=== PATIENT | female | born 1990 | race Caucasian/White ===

== ENCOUNTER → 2021-09-04 12:56 | Outpatient (CLI) | payer OTHER, SELFPAY ==
--- NOTE | ~2021-09-04 | XR_ITS ---
XR lumbar spine min 4V DATE: 09/04/2021 13:16 INDICATION: Lumbar radiculopathy TECHNIQUE: AP, lateral, bilateral oblique views, coned lateral lumbosacral view COMPARISON: None FINDINGS: There is minimal degenerative spurring in the lower thoracic spine. Normal alignment lumbar spine. There is mild degenerative disc disease at L3-4 and moderately promine nt degenerative disc disease at L4-5. No spondylolysis or spondylolisthesis. No fracture or bone destruction. Included lower thoracic and l umbar pedicles are intact. The sacroiliac joints are normal. IMPRESSION: Degenerative changes of lower thoracic and lumbar spine Reviewed, dictated and finalized at location A.
== END ==
PROVIDERS: PCP Nurse Practitioner; Visit Provider Nurse Practitioner
DX: M54.16 Radiculopathy, lumbar region (principal)
CPT/HCPCS: 72110

== ENCOUNTER → 2021-09-12 11:06 | Outpatient (CLI) | payer OTHER, SELFPAY ==
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
== END ==
PROVIDERS: PCP Internal Medicine; Visit Provider Clinical Nurse Specialist
DX: R20.2 Paresthesia of skin (principal); M51.36 Other intervertebral disc degeneration, lumbar region
CPT/HCPCS: 72148

== ENCOUNTER 2021-11-09 13:02 | Outpatient (CLI) | payer OTHER, SELFPAY ==
[2021-11-09 20:33] LABS: Basophils Absolute Auto 0.1 K/mm3 (0.0-0.1); Basophils Percent Auto 0.6 % (0.2-1.2); Eosinophils Absolute Auto 0.2 K/mm3 (0-0.3); Eosinophils Percent Auto 1.9 % (0-4.4); Hematocrit 42.7 % (37.0-47.0); Immature Granulocyte Absolute 0.04 K/mm3 (0.00-0.031); Immature Granulocyte Percent A 0.3 % (0-0.5); Lymphocytes Absolute Auto 2.14 K/mm3 (0.9-3.2); Lymphocytes Percent Auto 18.6 % (18.3-44.2); Mean Corpuscular HGB Conc 31.4 g/dl (32-36); Mean Corpuscular Hemoglobin 27.1 pg (26-34); Mean Corpuscular Volume 86.4 fl (80-100); Mean Platelet Volume 10.7 fl (7.4-10.4); Monocytes Absolute Auto 1.1 K/mm3 (0.1-0.6); Monocytes Percent Auto 9.9 % (2.6-8.5); Neutrophils Absolute Auto 7.9 K/mm3 (1.3-6.7); Neutrophils Percent Auto 68.7 % (45.5-73.1); Platelet Count Result 360 k/mm3 (150-375); Red Blood Count 4.94 M/mm3 (4.2-5.4); Red Cell Distribution Width 13.5 % (11.5-14.5); White Blood Count 11.5 K/mm3 (4.5-10.0)
[2021-11-09 20:36] LABS: Appearance Urine Turbid (Clear); Bilirubin Urine 1+ (Negative); Color Urine Brown (Yellow); Glucose Urine UA Negative (Negative); Ketones Urine Negative (Negative); Leukocyte Esterase Ur Negative LEU/UL (NEGATIVE); Nitrate Urine Negative (Negative); Protein Urine 1+ mg/dL (Negative); Specific Grav Ur >= 1.030 (1.001-1.035); Urobilinogen Urine 0.2 mg/dL (<2.0)
[2021-11-09 21:00] LABS: Alanine Aminotransferase 36 U/L (6-35); Albumin Level 4.5 g/dL (3.5-5.1); Alkaline Phosphatase 86 U/L (38-126); Anion Gap 14 mmol/L (8-16); Aspartate Amino Transferase 57 U/L (14-36); Bilirubin,Total 0.6 mg/dL (0.2-1.3); Blood Urea Nitrogen 9 mg/dL (7-17); Calcium 8.6 mg/dL (8.4-10.2); Carbon Dioxide 27 mmol/L (22-30); Chloride 99 mmol/L (98-107); Estimated Glomerular Filt Rate > 60; Glucose 92 mg/dL (65-110); Potassium 3.6 mmol/L (3.4-5.0); Sodium 140 mmol/L (137-145)
[2021-11-09 21:04] LABS: Hemoglobin 13.4 g/dL (12.0-15.0)
[2021-11-09 21:12] LABS: Bacteria Urine Trace /hpf; Calcium Oxalate Crystals Urine Present /hpf; Mucus Urine Heavy /lpf; RBC Urine 0-2 /hpf (0-2); Squamous Epithelial Cell Urine Moderate /hpf (Few); WBC Urine 16-20 /hpf (0-3)
[2021-11-09 21:22] LABS: HIV 1/2 Ab P24 Ag Result Negative (Negative)
[2021-11-09 21:57] LABS: Add Urine Microscopic? YES; Blood Urine Trace-Intact (Negative)
[2021-11-10 10:39] LABS: Rapid Plasma Reagin Non-Reactive (NonReactive)
== END 2021-11-09 13:03 | disposition home or self-care (01) ==
LOC: ANHGOSHLAB 13:05
PROVIDERS: PCP Internal Medicine; Visit Provider Family Medicine
DX: Z11.3 Encounter for screening for infections with a predominantly sexual mode of transmission (principal); R10.2 Pelvic and perineal pain; R30.0 Dysuria
CPT/HCPCS: 36415; 80053; 81001; 85025; 86592; 86703; 87086; 87088; 87491; 87591; 87661; 87808; G0432

== ENCOUNTER 2022-02-11 09:30 | Outpatient (CLI) | payer OTHER, SELFPAY ==
--- NOTE | ~2022-02-11 | XR_ITS ---
Left foot Technique: AP, oblique, and lateral views were obtained. Clinical History: Pain Findings: No acute fracture or dislocation is seen. Osseous alignment is anatomic. Joint spaces are p reserved without erosive or degenerative change. Soft tissues are unremarkable. Impression: Unremarkable left foot radiographs. Reviewed, dictated and finalized at location . ICE OFFICER Impression: Unremarkable left foot radiographs.
--- NOTE | ~2022-02-11 | XR_ITS ---
Left ankle Technique: AP, oblique, and lateral views were obtained. Clinical History: Pain and swelling Findings: No acute fracture or dislocation is seen. Osseous alignment is anatomic. Ankle mortise and other visualized joint spaces are preserved. Diffuse soft tissue swelling about the ankle noted, aracelis cially medially. Impression: No fracture or dislocation. Soft tissue swelling, as detailed above. Reviewed, dictated and finalized at location . TICE SPECIALIST Impression: No fracture or dislocation. Soft tissue swelling, as detailed above.
== END 2022-02-11 09:31 ==
PROVIDERS: PCP Family Medicine; Visit Provider Family Medicine
DX: M25.572 Pain in left ankle and joints of left foot (principal); R60.9 Edema, unspecified
CPT/HCPCS: 73610; 73630

== ENCOUNTER 2022-02-11 11:02 | Outpatient (CLI) | payer OTHER, SELFPAY ==
--- NOTE | ~2022-02-11 | MR_ITS ---
MRI of the left ankle Clinical history: Trauma Technique: Coronal proton-density and proton-density fat-sat images, axial proton-density and proton- density fat-sat images, and sagittal proton-density and proton-density fat-sat images were acquired. Findings: Syndesmotic ligaments are intact. Anterior and posterior talofibular ligaments, and calcane ofibular ligament are intact. Deltoid ligament is intact. Spring ligament appears intact. Medial flexor tendons, peroneal tendons, anterior extensor tendons, and Achilles tendon are intact. There is a transverse, nondisplaced fracture of the lateral malleolus, at the level of the ankle mort ise. No other fracture identified. Remaining bone marrow signals are unremarkable. Alignment of the a nkle mortise and other joint spaces is unremarkable. No significant joint effusion. There is extensive hematoma formation in the subcutaneous soft tissues along the medial aspect of the ankle, measuring up to approximately 5.7 x 1.4 x 5.0 cm in extent. There is associated diffuse soft tissue edema about the ankle otherwise. Impression: Transverse, nondisplaced fracture of the lateral malleolus, as detailed above. Large hematoma formation in the medial subcutaneous soft tissues, as detailed above. Reviewed, dictated and finalized at location . RYMAN Impression: Transverse, nondisplaced fracture of the lateral malleolus, as detailed above. Large hematoma formation in the medial subcutaneous soft tissues, as detailed a idania.
== END 2022-02-11 11:03 | disposition home or self-care (01) ==
PROVIDERS: PCP Family Medicine; Visit Provider Family Medicine
DX: S82.65XA Nondisplaced fracture of lateral malleolus of left fibula, initial encounter for closed fracture (principal); T14.90XA Injury, unspecified, initial encounter; M25.472 Effusion, left ankle
CPT/HCPCS: 73721

== ENCOUNTER 2022-02-17 11:20 | Outpatient (RCR) | payer OTHER, SELFPAY ==
--- NOTE | 2021-09-21 16:49 | PCPTNOTE ---
Patient did not show up for scheduled initial evaluation this date.
== END 2022-02-17 11:25 | disposition home or self-care (01) ==
LOC: ANHGOSHPT 11:20
PROVIDERS: PCP Family Medicine; Visit Provider Nurse Practitioner
DX: M54.16 Radiculopathy, lumbar region (principal)
CPT/HCPCS: 99199

== ENCOUNTER 2022-08-12 11:38 | Outpatient (CLI) | payer OTHER, SELFPAY ==
[2022-08-12 19:30] LABS: Alanine Aminotransferase 400 U/L (6-35); Albumin Level 4.2 g/dL (3.5-5.1); Alkaline Phosphatase 167 U/L (38-126); Amylase 62 U/L (30-110); Anion Gap 6 mmol/L (8-16); Aspartate Amino Transferase 351 U/L (14-36); Basophils Absolute Auto 0.1 K/mm3 (0.0-0.1); Basophils Percent Auto 0.6 % (0.2-1.2); Bilirubin,Total 0.7 mg/dL (0.2-1.3); Blood Urea Nitrogen 13 mg/dL (7-17); Calcium 8.4 mg/dL (8.4-10.2); Carbon Dioxide 30 mmol/L (22-30); Chloride 101 mmol/L (98-107); Eosinophils Absolute Auto 0.2 K/mm3 (0-0.3); Eosinophils Percent Auto 1.8 % (0-4.4); Estimated Glomerular Filt Rate > 60; Glucose 81 mg/dL (65-110); Hemoglobin 11.9 g/dL (12.0-15.0); Immature Granulocyte Absolute 0.07 K/mm3 (0.00-0.031); Immature Granulocyte Percent A 0.6 % (0-0.5); Lipase 66 U/L (23-300); Lymphocytes Absolute Auto 2.28 K/mm3 (0.9-3.2); Lymphocytes Percent Auto 20.2 % (18.3-44.2); Mean Corpuscular HGB Conc 32.2 g/dl (32-36); Mean Corpuscular Hemoglobin 27.4 pg (26-34); Mean Corpuscular Volume 85.1 fl (80-100); Mean Platelet Volume 10.3 fl (7.4-10.4); Monocytes Absolute Auto 0.8 K/mm3 (0.1-0.6); Monocytes Percent Auto 7.3 % (2.6-8.5); Neutrophils Absolute Auto 7.9 K/mm3 (1.3-6.7); Neutrophils Percent Auto 69.5 % (45.5-73.1); Platelet Count Result 279 k/mm3 (150-375); Potassium 3.9 mmol/L (3.4-5.0); Red Blood Count 4.35 M/mm3 (4.2-5.4); Red Cell Distribution Width 13.3 % (11.5-14.5); Sodium 137 mmol/L (137-145); White Blood Count 11.3 K/mm3 (4.5-10.0)
[2022-08-12 19:37] LABS: Pregnancy On Board Control Positive; Urine Pregnancy Test Negative
[2022-08-12 19:48] LABS: Appearance Urine Turbid (Clear); Bacteria Urine 1+ /hpf; Bilirubin Urine 1+ (Negative); Blood Urine Negative (Negative); Calcium Oxalate Crystals Urine Present /hpf; Color Urine Dark Yellow (Yellow); Glucose Urine UA Negative (Negative); Ketones Urine Trace mg/dL (Negative); Leukocyte Esterase Ur Trace LEU/UL (NEGATIVE); Need Manual Microscopic Reviewed; Nitrate Urine Negative (Negative); Non Pathogenic Casts 0-2; Protein Urine Trace mg/dL (Negative); Specific Grav Ur 1.033 (1.001-1.035); Squamous Epithelial Cell Urine Moderate /hpf (Few); pH Urine 5.5 (5.0-9.0)
[2022-08-12 19:49] LABS: Add Urine Microscopic? YES
[2022-08-19 18:01] LABS: Chenodeoxycholic Acid 2.4 umol/L (< OR = 3.9); Cholic Acid 1.8 umol/L (< OR = 2.8); Deoxycholic Acid 0.8 umol/L (< OR = 2.3); Total Bile Acids 4.9 umol/L (< OR = 8.3)
== END 2022-08-12 11:39 | disposition home or self-care (01) ==
LOC: ANHGOSHLAB 11:40
PROVIDERS: Visit Provider Family Medicine
DX: R10.9 Unspecified abdominal pain (principal)
CPT/HCPCS: 36415; 80053; 81001; 81025; 82150; 82542; 83690; 85025

== ENCOUNTER → 2022-08-12 16:08 | Outpatient (CLI) | payer OTHER, SELFPAY ==
--- NOTE | ~2022-08-12 | US_ITS ---
US abdomen complete EXAMINATION: US Abdomen Complete INDICATION: Abdomen pain PROCEDURE: Realtime High Resolution abdomen ultrasound. COMPARISON: No prior studies for comparison FINDINGS: There are gallstones. Common bile duct measures 5 mm. Liver echotexture is increased, consistent with fatty infiltration.. Pancreas within normal limits. Pancreatic tail is obscured by bowel gas. Spleen is unremarkeable. Renal echotexture is within norm al limits bilaterally without hydronephrosis, contour deforming mass or renal stone. Right kidney fei sures 11.9 cm. Left kidney measures 12.4 cm. Visualized aspects of the aorta and IVC are within normal limits. Portal vein is patent. No sonograph ic Palomino's sign indicated by the technologist. IMPRESSION: 1: Cholelithiasis. 2: Hepatic steatosis. Reviewed, dictated and finalized at location L.
== END ==
PROVIDERS: PCP Family Medicine; Visit Provider Family Medicine
DX: R10.9 Unspecified abdominal pain (principal); K80.20 Calculus of gallbladder without cholecystitis without obstruction; K76.0 Fatty (change of) liver, not elsewhere classified
CPT/HCPCS: 76700

== ENCOUNTER 2022-08-13 12:33 | Outpatient (CLI) | payer OTHER, SELFPAY ==
[2022-08-13 18:32] LABS: Alanine Aminotransferase 256 U/L (6-35); Albumin Level 4.2 g/dL (3.5-5.1); Alkaline Phosphatase 136 U/L (38-126); Anion Gap 5 mmol/L (8-16); Aspartate Amino Transferase 112 U/L (14-36); Bilirubin,Total 0.4 mg/dL (0.2-1.3); Blood Urea Nitrogen 10 mg/dL (7-17); Calcium 8.6 mg/dL (8.4-10.2); Carbon Dioxide 28 mmol/L (22-30); Chloride 104 mmol/L (98-107); Estimated Glomerular Filt Rate > 60; Glucose 101 mg/dL (65-110); Potassium 4.1 mmol/L (3.4-5.0); Sodium 137 mmol/L (137-145)
[2022-08-13 18:38] LABS: Basophils Absolute Auto 0.1 K/mm3 (0.0-0.1); Basophils Percent Auto 0.7 % (0.2-1.2); Eosinophils Absolute Auto 0.2 K/mm3 (0-0.3); Eosinophils Percent Auto 2.2 % (0-4.4); Hematocrit 38.5 % (37.0-47.0); Hemoglobin 12.2 g/dL (12.0-15.0); Immature Granulocyte Absolute 0.09 K/mm3 (0.00-0.031); Immature Granulocyte Percent A 0.8 % (0-0.5); Lymphocytes Absolute Auto 2.29 K/mm3 (0.9-3.2); Lymphocytes Percent Auto 21.4 % (18.3-44.2); Mean Corpuscular HGB Conc 31.7 g/dl (32-36); Mean Corpuscular Hemoglobin 27.1 pg (26-34); Mean Corpuscular Volume 85.6 fl (80-100); Mean Platelet Volume 10.1 fl (7.4-10.4); Monocytes Absolute Auto 0.9 K/mm3 (0.1-0.6); Monocytes Percent Auto 8.5 % (2.6-8.5); Neutrophils Absolute Auto 7.1 K/mm3 (1.3-6.7); Neutrophils Percent Auto 66.4 % (45.5-73.1); Platelet Count Result 298 k/mm3 (150-375); Red Cell Distribution Width 13.4 % (11.5-14.5); White Blood Count 10.7 K/mm3 (4.5-10.0)
[2022-08-13 18:56] LABS: Free T4 Free Thyroxine 0.86 ng/mL (0.78-2.19)
[2022-08-13 19:06] LABS: Hepatitis B Surface Antigen Negative (Negative)
[2022-08-13 19:12] LABS: HAV RESULT Negative (Negative); Hepatitis B Core IgM Result Negative (Negative)
[2022-08-13 19:23] LABS: Hepatitis C Virus Antibody Negative (Negative)
[2022-08-17 11:57] LABS: GGT 579 U/L (3-50)
[2022-08-21 21:20] LABS: Hepatitis Delta Antibody NEGATIVE
== END 2022-08-13 12:34 | disposition home or self-care (01) ==
PROVIDERS: PCP Family Medicine; Visit Provider Family Medicine
DX: E55.9 Vitamin D deficiency, unspecified (principal); R53.83 Other fatigue; R74.8 Abnormal levels of other serum enzymes; R10.9 Unspecified abdominal pain
CPT/HCPCS: 36415; 80053; 80074; 82306; 82977; 84439; 84443; 85025; 86692

== ENCOUNTER 2022-08-19 15:41 | Outpatient (CLI) | payer OTHER, SELFPAY ==
--- NOTE | ~2022-08-19 | MR_ITS ---
MRI of the abdomen: Clinical indication: Abdominal pain, abnormal LFTs. Technique: Coronal SSFSE ARC, WATER:coronal LAVA-FLEX, Coronal 2D FIESTA FatSat, Axial SSFSE BH ARC, Axial 3D DualEcho BH, Axial SSFSE-IR, Axial DWI b=500, Axial 2D FIESTA FatSat, pre and dynamic postco ntrast Axial LAVA ARC, postcontrast Coronal In and Opposed phase LAVA FLEX. Following intravenous adm inistration of 20 cc MultiHance gadolinium, T1-weighted fat-sat imaging was performed in the axial an d coronal planes. Findings: Multiple small layering gallstones are noted. The common bile duct is normal in course and caliber. No filling defects are seen within the CBD. No evidence of intrahepatic biliary ductal dila tation. The pancreatic duct is normal in size. Probable areas of regional fatty infiltration of liver, with signal loss on out of phase images relat keya to in phase images. The spleen, pancreas, adrenals, kidneys appear normal. The aorta and the para aortic regions appear normal. Impression: Cholelithiasis. Probable regional fatty infiltration of liver. No evidence of choledocholithiasis, biliary dilatation, or acute pancreatitis. Reviewed, dictated and finalized at location . Impression: Cholelithiasis. Probable regional fatty infiltration of liver. No evidence of choledocholithiasis, biliary dilatation, or acute pancreatitis.
== END 2022-08-19 15:42 | disposition home or self-care (01) ==
PROVIDERS: PCP Family Medicine; Visit Provider Nurse Practitioner
DX: R74.8 Abnormal levels of other serum enzymes (principal); K80.50 Calculus of bile duct without cholangitis or cholecystitis without obstruction; K80.20 Calculus of gallbladder without cholecystitis without obstruction
CPT/HCPCS: 74183; 76376; A9577

== ENCOUNTER 2022-09-11 14:09 | Outpatient (CLI) | payer OTHER, SELFPAY ==
[2022-09-11 14:35] LABS: Alanine Aminotransferase 21 U/L (6-35); Albumin Level 4.3 g/dL (3.5-5.1); Alkaline Phosphatase 62 U/L (38-126); Aspartate Amino Transferase 23 U/L (14-36); Bilirubin,Total 0.3 mg/dL (0.2-1.3)
== END 2022-09-11 14:10 | disposition home or self-care (01) ==
PROVIDERS: PCP Otolaryngology; Visit Provider Surgery
DX: K80.20 Calculus of gallbladder without cholecystitis without obstruction (principal); R74.8 Abnormal levels of other serum enzymes; Z01.818 Encounter for other preprocedural examination
CPT/HCPCS: 36415; 80076; 86850; 86900; 86901

== ENCOUNTER 2022-09-14 00:41 | Day surgery (SDC) | payer OTHER, SELFPAY ==
[2022-09-07 12:46] VITALS: BMI 43.9
--- NOTE | 2022-09-07 12:49 | SUR.PREOP ---
Report to the Outpatient Waiting Room, entrance under the green pavilion located off [facility], at time _1000 on date _09/14/22 . Planned Procedure Time: _1200 . Time changes happen often and if your time is changed the preop area will call you the afternoon before. - You and your visitor will be asked to self-screen and do not enter if you have any COVID symptoms. - A mask is optional within the hospital at this time. Patients may have clear liquids (water, carbonated beverages, clear teas, apple juice) until 3 hours prior to surgery with a maximum of 20 ounces. - No food from midnight until time of surgery - Infants may have breast milk until 4 hours before surgery, infant formula 6 hours prior to surgery. - Children will be allowed to drink immediately following surgery. If applicable, please bring a bottle or sippy cup to assist with drinking. Juice, water, soda, and popsicles are readily available. For infants on formula, please bring formula the day of surgery. Pacifiers are allowed. Take the following medications with a SIP of water the morning of surgery: __BUPROPION,LEXAPRO BRING INHALER AM OF SURGERY DO NOT STOP ANY OF YOUR OTHER PRESCRIPTION MEDICATIONS PRIOR TO SURGERY ?EXCEPT THE FOLLOWING Medications to discontinue per physician N/A Date to take last dose__N/A Please no make-up, nail uruguayan, hairspray, perfume, deodorant, or body powder the day of surgery. No jewelry (including any body piercings) or valuables the day of surgery, leave them at home. Please take a shower or bath the night before, or the morning of, surgery with an antibacterial soap. Wear comfortable, loose fitting clothing. Children are encouraged to wear pajamas. HIBICLENS SHOWER AM OF SURGERY. - Jewelry must be removed prior to entering the operating room. Rings and piercings that are not removed may be cut off. - The hospital will not accept responsibility for valuables. - Please leave all valuables, including medications, at home the day of surgery. If you are going home after surgery, a licensed cdl bulk driver must drive you home. - NO public transportation without another adult if you receive anesthesia. - We recommend that an adult stay with you for 24 hours following discharge. - We also recommend that you do not drive, make important decision, drink alcoholic beverages, or take any drugs that were not prescribed by your health care provider for at least 24 hours after your discharge time. For Pediatric surgeries, we recommend two adults accompany the child home. Follow any additional instructions given to you from your surgeon. If you or anyone in your household have experienced Covid symptoms in the past week, please notify your surgeon or the nurse liaison at the phone number below for possible testing. Telephone instructions given to RENA KEE___and asked if any additional questions and then verbalized understanding. Patient advised to call surgeon office or pre surgery nurse liaison [phone] if any additional questions.
[2022-09-14] VITALS (8 sets, daily range): BP systolic 114–147; BP diastolic 75–87; PULSE 80–110; RESP 15–19; TEMP 36.4–36.7; O2SAT 95–99
--- NOTE | 2022-09-14 07:44 | WPDANESEPPF ---
Anes - Initial Pre Proc Eval Procedure: Operation Date: 09/14/22 12:00 Proposed Procedures p Robotic Assisted Laparoscopic Cholecystectomy - Quirino Chung MD Date/Time: 09/14/22 07:44 Surgeon: Quirino Chung MD Pre Op Diagnosis: biliary colic secondary to gallstones Patient Data Age: 32 Gender: F Height: 1.7 m Weight: 127.27 kg Allergies Allergy/AdvReac Type Severity Reaction Status Date / Time gadobenic acid Allergy Intermediate Hives Verified 09/14/22 10:38 [From contrast - MRI] bupivacaine [From Marcaine] Allergy Mild Hives Verified 09/14/22 10:38 Home Medications Medication Instructions Recorded Confirmed Type tretinoin 0.025 % topical cream 1 applic topical QHS #45 grams 12/23/21 09/14/22 Rx bupropion HCl 300 mg 24 hr tablet, 300 mg PO QAM #90 tabs 03/13/22 09/14/22 Rx extended release omeprazole 40 mg capsule,delayed 40 mg PO DAILY #90 caps 03/13/22 09/14/22 Rx release rizatriptan 10 mg disintegrating 10 mg PO ONCE PRN migraine 03/13/22 09/14/22 Rx tablet (Maxalt-COMMERCIAL REPRESENTATIVE) headache #27 tabs Adderall XR 30 mg capsule,extended 30 mg PO DAILY 1 month #30 caps 08/26/22 09/14/22 Rx release (dextroamphetamine-amphetamine) dextroamphetamine-amphetamine 10 20 mg PO DAILY 1 month #60 tabs 08/26/22 09/14/22 Rx mg tablet (Adderall) ergocalciferol (vitamin D2) 1,250 1,250 mcg PO WEEKLY #4 caps 08/26/22 09/14/22 Rx mcg (50,000 unit) capsule escitalopram oxalate 20 mg tablet 20 mg PO DAILY 09/07/22 09/14/22 History (Lexapro) gabapentin 800 mg tablet 800 mg PO TID PRN Pain 09/07/22 09/14/22 History Patient hx anesthesia problems: none Family hx anesthesia problems: none Results Review: All pre-operative results and documents have been reviewed as part of the pre-operative evaluation. [facility] Past Medical History Medical History Anxiety Asthma Degenerative lumbar disc Depression Fracture of distal end of left fibula GERD (gastroesophageal reflux disease) Obstructive sleep apnea Family History Family History Father Colorectal cancer Diabetes mellitus Hypertension Mother Rheumatoid arthritis Factor 5 Leiden mutation, heterozygous Sibling Depression Anxiety Hypothyroidism Social History Social History Smoking status: Never smoker Alcohol intake: current Alcohol use details: socially Substance use: never Living arrangements: alone Occupation/Education: occupation 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 Informed Consent: The patient's anesthetic plan and its attendant risks and benefits were discussed with the patient/family/POA. Questions were solicited and answers provided to the satisfaction of the patient/family/POA.
[2022-09-14] MEDS: LACTATED RINGERS 1,000 ML 30 ML IV CONT ×2 (10:23→14:30)
[2022-09-14] MEDS: ACETAMINOPHEN 500 MG TABLET 1000 MG PO (10:23)
[2022-09-14] MEDS: KETOROLAC 15 MG/ML VIAL (*BKC) IV PUSH ×2 (10:25→14:00)
[2022-09-14] MEDS: INDOCYANINE GREEN 25 MG VIAL WITH DILUENT 3.75 MG IV PUSH (10:28)
--- NOTE | 2022-09-14 12:15 | WPDHPUPDATE1 ---
History and Physical Update Update Date/Time: 09/14/22 12:15 History and Physical has been reviewed, including an updated exam of the patient. There are NO changes in the patient's condition. Risks, benefits, and alternatives have been discussed and questions answered. Patient agrees to proceed with procedure.
[2022-09-14] MEDS: ceFAZolin 3 GM/D5W 100 ML 100 ML IVPB (12:57)
[2022-09-14] MEDS: LIDO 1%/EPINEPHRINE 1:100,000 50 ML VIAL 30 ML INFILTRATE (13:55)
--- NOTE | 2022-09-14 14:28 | W.PM.PROC2 ---
Procedure Note - Detailed Date of Procedure 09/14/22 Pre-op Diagnosis Biliary colic secondary to gallstones Post-op Diagnosis Same Procedure Performed Robotic assisted laparoscopic cholecystectomy Surgeon Quirino Chung MD Hand Salter NATALIE Kan Anesthesia General Indications Patient is a 32-year-old female presented with complaints of right upper quadrant epigastric abdominal pain. Pain was made protecting worse with eating. Gallstones were noted on imaging. No gallbladder wall thickening suggest acute or chronic cholecystitis was noted. She did have transient elevation of her liver enzymes which may have indicated passage of common bile duct stone. Liver enzymes returned to normal. Presents now for robotic assisted laparoscopic cholecystectomy. Findings The gallbladder wall was normal appearing. Many too numerous to count small gallstones gravel-like incised which were yellow cholesterol stones were seen. No acute cholecystitis or chronic cholecystitis was noted. Description of Procedure After informed consent was obtained patient brought to the operating room where she was placed supine position and general endotracheal anesthesia was administered. The abdomen was then prepped and draped in the usual sterile fashion. A time-out was then performed correctly identifying the patient as well as procedure to be performed. She was given Ancef for perioperative IV antibiotics. He then proceeded to gain entrance into the abdomen by using a 5mm Optiview port in left upper quadrant. I then insufflated to adequate pneumoperitoneum of 15mmHg of CO2. Additional 8mm robotic trocar ports were then placed in the periumbilical position and then in the left and right sides of the abdomen all under direct visualization. The de Be robot was then docked to the patient's bedside on the right. The robotic arms were then attached robotic ports. The 0 degree laparoscopic robotic scope was then placed into the abdomen and targeted. The remaining robotic arms were attached to the robotic ports and instruments were advanced into the abdomen under direct visualization. I scrubbed out the procedure sent abdomen robotic console for dissection. A ProGrasp was used to hold the gallbladder at the dome and the gallbladder elevated over the right half of his right shoulder. A 2nd robotic grasper used to hold the gallbladder at the infundibulum and then with traction laterally on the infundibulum I utilized robotic hook cautery to start dissecting the visceral peritoneum off of the gallbladder. I then identified the cystic duct was dissected out circumferentially. The cystic artery was then identified dissected out circumferentially as well. I then dissected the posterior wall the gallbladder at the infundibulum free of the liver into the critical view was obtained. At this point I then placed 2 clips proximal cystic duct and 2 clips distally high infundibular gallbladder. The cystic duct was then divided the hook cautery with pure cut. The cystic artery clipped and divided as well. The gallbladder was then dissected off the liver utilizing electrocautery. There was spillage of some bile and number of small gallstones which were aspirated. I then placed the gallbladder into an Endo-Catch bag and brought out through the left upper quadrant trocar port site which had been upsized to a 10mm trocar port. The gallbladder and stones were sent to pathology for examination. I then irrigated out the gallbladder fossa in the right upper quadrant sterile saline solution. I then aspirated any of the small gallstones as I could find. I then removed the robotic instruments from the abdomen and undocked the DA Be robot. I then scrubbed back into the procedure to close the 10mm left upper quadrant trocar port utilizing a suture Passer and 0 Vicryl suture. The ports were then all removed from the abdomen and the all the port sites were hemostatic. The abdomen was allowed
[2022-09-14] MEDS: fentaNYL CITRATE INJ (*CRX) 100 MCG/2 ML VIAL 25 MCG IV PUSH ×5 (14:47→15:21)
[2022-09-14] MEDS: SCOPOLAMINE 1.5 MG PATCH TRANSDERM (14:50)
[2022-09-14] MEDS: diphenhydrAMINE HCl INJ 50 MG/ML VIAL 12.5 MG IV PUSH (15:44)
[2022-09-14] MEDS: oxyCODONE HCL (*CRX) 5 MG TAB IR PO (15:46)
== END 2022-09-14 16:35 | disposition home or self-care (01) ==
PROVIDERS: PCP Family Medicine; Visit Provider Surgery
PROC: 0FT44ZZ Resection of Gallbladder, Percutaneous Endoscopic Approach (ICD-10-PCS; CPT 47562; principal; 2022-09-14 12:00)
DX: K80.10 Calculus of gallbladder with chronic cholecystitis without obstruction (principal); K21.9 Gastro-esophageal reflux disease without esophagitis; G47.33 Obstructive sleep apnea (adult) (pediatric); F41.9 Anxiety disorder, unspecified; F32.A Depression, unspecified; E66.01 Morbid (severe) obesity due to excess calories; Z68.41 Body mass index [BMI] 40.0-44.9, adult
CPT/HCPCS: 47562; S2900; 88304; A9270; J0690; J1100; J1200; J1885; J2250; J2405; J2704; J3010; J7030; J7120

== ENCOUNTER 2022-09-27 16:45 | Outpatient (CLI) | payer OTHER, SELFPAY ==
--- NOTE | ~2022-09-27 | CT_ITS ---
EXAMINATION: CT abdomen pelvis w con DATE: 09/27/2022 17:25 INDICATION: Lap judith 10/15 TECHNIQUE: Computed tomography (CT) of the abdomen and pelvis was performed with 100 mL Omnipaque-350 intravenous contrast. Automated exposure control and iterative reconstruction technique were employe d. The dose-length product was 1603.65 mGy-cm. COMPARISON: None. FINDINGS: Lower thorax: Unremarkable Liver: Normal. Biliary/Gallbladder: Gallbladder is absent. No bile duct dilation. Pancreas: No mass or duct dilation. Spleen: Normal. Adrenals:No mass. Kidneys: No mass, stone, or hydronephrosis. GI tract: No small or large bowel dilation. Normal appendix. Mild diverticulosis without diverticulit is. Mesentery/Peritoneum: No ascites, mass, or free air. Retroperitoneum: No mass. Pelvis: Pelvic organs are within normal limits. Soft Tissues: Healing post surgical changes in the anterior abdomen, without evident complication. Bones: No acute osseous finding. IMPRESSION: No acute abdominopelvic process detected. Reviewed, dictated and finalized at location K.
== END 2022-09-27 16:46 | disposition home or self-care (01) ==
LOC: ANHIMG 16:48
PROVIDERS: PCP Family Medicine; Visit Provider Internal Medicine Critical Care Medicine
DX: R10.9 Unspecified abdominal pain (principal)
CPT/HCPCS: 74177; Q9967

== ENCOUNTER 2022-10-22 00:36 | Day surgery (SDC) | payer OTHER, SELFPAY ==
--- NOTE | 2022-10-18 13:21 | PC.NURSE ---
Report to the Outpatient Waiting Room, entrance under the green pavilion located off [facility], at time _0600 on date __10/22/22 . Planned Procedure Time: _0730 . Time changes happen often and if your time is changed the preop area will call you the afternoon before. - You and your visitor will be asked to self-screen and do not enter if you have any COVID symptoms. - A mask is optional within the hospital at this time. Patients may have clear liquids (water, carbonated beverages, clear teas, apple juice) until 3 hours prior to surgery with a maximum of 20 ounces. - No food from midnight until time of surgery - Infants may have breast milk until 4 hours before surgery, formula 6 hours prior to surgery. - Children will be allowed to drink immediately following surgery. If applicable, please bring a bottle or sippy cup to assist with drinking. Juice, water, soda, and popsicles are readily available. For infants on formula, please bring formula the day of surgery. Pacifiers are allowed. Take the following medications with a SIP of water the morning of surgery: __INHALER IF NEEDED,BUPROPION,ESCITALOPRAM DO NOT STOP ANY OF YOUR OTHER PRESCRIPTION MEDICATIONS PRIOR TO SURGERY ?EXCEPT THE FOLLOWING Medications to discontinue per physician ____ALL VITAMINS AND SUPPLEMENTS 3 DAYS PRE OP.LAST DOSE 10/18/22 Please no make-up, nail malay, hairspray, perfume, deodorant, or body powder the day of surgery. No jewelry (including any body piercings) or valuables the day of surgery, leave them at home. Please take a shower or bath the night before, or the morning of, surgery with an antibacterial soap. Wear comfortable, loose fitting clothing. Children are encouraged to wear pajamas. - Jewelry must be removed prior to entering the operating room. Rings and piercings that are not removed may be cut off. - The hospital will not accept responsibility for valuables. - Please leave all valuables, including medications, at home the day of surgery. If you are going home after surgery, a licensed mixer driver must drive you home. - NO public transportation without another adult if you receive anesthesia. - We recommend that an adult stay with you for 24 hours following discharge. - We also recommend that you do not drive, make important decision, drink alcoholic beverages, or take any drugs that were not prescribed by your health care provider for at least 24 hours after your discharge time. For Pediatric surgeries, we recommend two adults accompany the child home. Follow any additional instructions given to you from your surgeon. If you or anyone in your household have experienced Covid symptoms in the past week, please notify your surgeon or the nurse liaison at the phone number below for possible testing. Telephone instructions given to ___PATIENT and asked if any additional questions and then verbalized understanding. Patient advised to call surgeon office or pre surgery nurse liaison [phone] if any additional questions.
[2022-10-18 13:29] VITALS: BMI 42.6
--- NOTE | 2022-10-21 12:43 | PM.IMHP ---
H&P: HPI History of Present Illness Date/Time: 10/21/22 12:43 Chief Complaint: Recurrent tonsillitis tonsillar hypertrophy Narrative: planned procedure Review of Systems Review of Systems: All systems reviewed & are unremarkable except as noted in HPI and below [facility] Past Medical History Medical History Anxiety Asthma Degenerative lumbar disc Depression Fracture of distal end of left fibula GERD (gastroesophageal reflux disease) Obstructive sleep apnea Surgical History Surgical History History of laparoscopic cholecystectomy 09/14/2022 - Robotic assisted laparoscopic cholecystectomy Family History Family History Father Colorectal cancer Diabetes mellitus Hypertension Mother Rheumatoid arthritis Factor 5 Leiden mutation, heterozygous Sibling Depression Anxiety Hypothyroidism Social History Social History Smoking status: Never smoker Alcohol intake: current Alcohol use details: socially Substance use: never Living arrangements: alone Occupation/Education: occupation Additional occupation/education comments: [facility] care concerns: No Agree to blood products: Yes Meds Home Medications and Allergies Home Medications Medication Instructions Recorded Confirmed Type bupropion HCl 300 mg 24 hr tablet, 300 mg PO QAM #90 tabs 03/13/22 10/18/22 Rx extended release omeprazole 40 mg capsule,delayed 40 mg PO DAILY #90 caps 03/13/22 10/18/22 Rx release rizatriptan 10 mg disintegrating 10 mg PO ONCE PRN migraine 03/13/22 10/18/22 Rx tablet (Maxalt-DIGITAL LIBRARIAN) headache #27 tabs ergocalciferol (vitamin D2) 1,250 1,250 mcg PO WEEKLY #4 caps 08/26/22 10/18/22 Rx mcg (50,000 unit) capsule escitalopram oxalate 20 mg tablet 20 mg PO DAILY 09/07/22 10/18/22 History (Lexapro) gabapentin 800 mg tablet 800 mg PO TID PRN Pain 09/07/22 10/18/22 History albuterol sulfate 90 mcg/actuation 2 puff inhalation PRN PRN 10/18/22 10/18/22 History aerosol inhaler Shortness Of Breath tretinoin 0.025 % topical cream 1 applic topical QHS ACNE 10/18/22 10/18/22 History Adderall XR 30 mg capsule,extended 30 mg PO DAILY 1 month #30 caps 10/19/22 Rx release (dextroamphetamine-amphetamine) dextroamphetamine-amphetamine 10 10 mg PO BID 1 month #60 tabs 10/20/22 Rx mg tablet (Adderall) Allergies Allergy/AdvReac Type Severity Reaction Status Date / Time gadobenic acid Allergy Intermediate Hives Verified 10/18/22 13:15 [From contrast - MRI] bupivacaine [From Marcaine] Allergy Mild Hives Verified 10/18/22 13:15 Exam Narrative: large tonsils chronic appearing Assessment and Plan Assessment and plan (1) Recurrent tonsillitis: Code(s): J03.91 - Acute recurrent tonsillitis, unspecified Status: Acute Assessment and Plan: OR tonsillectomy. Risks were discussed including bleeding infection damage to any structure above the clavicles by myself damage to any structure during induction and remains of anesthesia including vocal cord paralysis. Postoperative bleeding 3-5%. Change in taste change in swallow could be permanent need for time off work need for time off school inherent risk of narcotic use. Patient voiced understanding of these risks and agreed.
[2022-10-22] VITALS (8 sets, daily range): BP systolic 118–145; BP diastolic 87–109; PULSE 68–87; RESP 12–16; TEMP 36.7–36.8; O2SAT 92–99
[2022-10-22] MEDS: ACETAMINOPHEN 500 MG TABLET 1000 MG PO (06:38)
[2022-10-22] MEDS: LACTATED RINGERS 1,000 ML 30 ML IV CONT ×2 (06:45→08:40)
--- NOTE | 2022-10-22 07:09 | WPDANESEPPF ---
Anes - Initial Pre Proc Eval Procedure: Operation Date: 10/22/22 07:30 Proposed Procedures p Tonsillectomy - David Draper MD Date/Time: 10/22/22 07:09 Surgeon: David Draper MD Pre Op Diagnosis: chronic tonsillitis Patient Data Age: 32 Gender: F Height: 1.7 m Weight: 123.3 kg Last Vital Signs Temp 98.2 F 10/22/22 07:02 Pulse 82 10/22/22 07:02 Resp 16 10/22/22 07:02 BP 124/87 10/22/22 07:02 Pulse Ox 99 10/22/22 07:02 O2 Del Method Room Air 10/22/22 07:02 Allergies Allergy/AdvReac Type Severity Reaction Status Date / Time gadobenic acid Allergy Intermediate Hives Verified 10/22/22 06:40 [From contrast - MRI] bupivacaine [From Marcaine] Allergy Mild Hives Verified 10/22/22 06:40 Home Medications Medication Instructions Recorded Confirmed Type bupropion HCl 300 mg 24 hr tablet, 300 mg PO QAM #90 tabs 03/13/22 10/22/22 Rx extended release omeprazole 40 mg capsule,delayed 40 mg PO DAILY #90 caps 03/13/22 10/22/22 Rx release rizatriptan 10 mg disintegrating 10 mg PO ONCE PRN migraine 03/13/22 10/18/22 Rx tablet (Maxalt-GENETICIST) headache #27 tabs ergocalciferol (vitamin D2) 1,250 1,250 mcg PO WEEKLY #4 caps 08/26/22 10/22/22 Rx mcg (50,000 unit) capsule escitalopram oxalate 20 mg tablet 20 mg PO DAILY 09/07/22 10/22/22 History (Lexapro) gabapentin 800 mg tablet 800 mg PO TID PRN Pain 09/07/22 10/22/22 History albuterol sulfate 90 mcg/actuation 2 puff inhalation PRN PRN 10/18/22 10/22/22 History aerosol inhaler Shortness Of Breath tretinoin 0.025 % topical cream 1 applic topical QHS ACNE 10/18/22 10/18/22 History Adderall XR 30 mg capsule,extended 30 mg PO DAILY 1 month #30 caps 10/19/22 Rx release (dextroamphetamine-amphetamine) dextroamphetamine-amphetamine 10 10 mg PO BID 1 month #60 tabs 10/20/22 Rx mg tablet (Adderall) Patient hx anesthesia problems: none Family hx anesthesia problems: none Results Review: All pre-operative results and documents have been reviewed as part of the pre-operative evaluation. [facility] Past Medical History Medical History Anxiety Asthma Degenerative lumbar disc Depression Fracture of distal end of left fibula GERD (gastroesophageal reflux disease) Obstructive sleep apnea Surgical History Surgical History History of laparoscopic cholecystectomy 09/14/2022 - Robotic assisted laparoscopic cholecystectomy Family History Family History Father Colorectal cancer Diabetes mellitus Hypertension Mother Rheumatoid arthritis Factor 5 Leiden mutation, heterozygous Sibling Depression Anxiety Hypothyroidism Social History Social History Smoking status: Never smoker Alcohol intake: current Alcohol use details: socially Substance use: never Living arrangements: alone Occupation/Education: occupation Additional occupation/education comments: [facility] Spiritual care concerns: No Agree to blood products: Yes Anes - Eval Final PreProcedure Day of Procedure 10/22/22 07:09 Patient weight: morbidly obese Heart: regular rate and rhythm Lungs: clear to auscultation Airway: Mallampati scale class II Neurological: alert and oriented Last oral intake: >/= 8 hours ASA classification: III Emergent: no Anesthetic plan: proceed Anesthesia type and monitoring: general ETT and standard monitoring Results Review: All pre-operative results and documents have been reviewed as part of the pre-operative evaluation. Informed Consent: The patient's anesthetic plan and its attendant risks and benefits were discussed with the patient/family/POA. Questions were solicited and answers provided to the satisfaction of the patient/family/POA.
--- NOTE | 2022-10-22 07:21 | WPDHPUPDATE1 ---
History and Physical Update Update Date/Time: 10/22/22 07:21 History and Physical has been reviewed, including an updated exam of the patient. There are NO changes in the patient's condition. Risks, benefits, and alternatives have been discussed and questions answered. Patient agrees to proceed with procedure. Uvulectomy
--- NOTE | 2022-10-22 08:56 | W.PM.PROC2 ---
Procedure Note - Detailed Date of Procedure 10/22/22 Pre-op Diagnosis chronic tonsillitis, uvular hypertrophy, dysphagia Post-op Diagnosis Same Procedure Performed Tonsillectomy uvulectomy Surgeon David Draper MD Anesthesia General Indications see above Findings large large uvula removed no bleeding tonsils removed minimal bleeding 2-3 cc. No complications large tonsils. Description of Procedure Patient identified consent verified preop period patient brought operating. Time-out performed. General anesthesia induced endotracheal tube secured. Patient prepped draped position procedure confirmed 2nd timeout performed. Tonsils removed bilaterally in extracapsular plane using Bovie electrocautery at a setting of 11. Any bleeding was controlled Bovie suction electrocautery setting of 12 and 13. Uvula removed with Bovie needle tip stump cauterized. Repair of a cane total of 2 cc 0.5 in the superior and inferior poles of each fossa was injected as well. Patient tolerated the procedure well. Minimal bleeding about 2-3 cc. McIvor mouthgag removed there was utilized to view the tonsils again this was a bilateral procedure. I performed all dictated portions. No complications. Patient taken to PACU. Care the patient given back to Anesthesiology. Estimated Blood Loss 2 Drains No Packing No Pathology Yes Complications No immediate complications Condition Stable Disposition PACU [facility] Billing Surgery - Charge Forward: Surgery Billing
[2022-10-22] MEDS: fentaNYL CITRATE INJ (*CRX) 100 MCG/2 ML VIAL 25 MCG IV PUSH (09:03)
[2022-10-22] MEDS: oxyCODONE HCL (*CRX) 5 MG TAB IR PO (09:59)
== END 2022-10-22 10:43 | disposition home or self-care (01) ==
PROVIDERS: PCP Family Medicine; Visit Provider Otolaryngology
PROC: (CPT 42826; principal; 2022-10-22 07:30)
DX: J35.1 Hypertrophy of tonsils (principal); K13.79 Other lesions of oral mucosa; J45.909 Unspecified asthma, uncomplicated; K21.9 Gastro-esophageal reflux disease without esophagitis; G47.33 Obstructive sleep apnea (adult) (pediatric); F41.9 Anxiety disorder, unspecified; F32.A Depression, unspecified; Z79.51 Long term (current) use of inhaled steroids; E66.01 Morbid (severe) obesity due to excess calories; Z68.41 Body mass index [BMI] 40.0-44.9, adult
CPT/HCPCS: 42826; 42104; 88304; A9270; J0330; J1100; J2250; J2405; J2704; J2795; J3010; J7120

== ENCOUNTER 2022-10-24 19:01 | Day surgery (SDC) | payer OTHER, SELFPAY ==
[2022-10-24] VITALS (11 sets, daily range): BP systolic 60–127; BP diastolic 45–87; PULSE 60–84; RESP 12–14; TEMP 36.3–36.6; O2SAT 97–100
--- NOTE | 2022-10-24 19:10 | PC.NURSE ---
Pt Bp 60s/40s. 2L NS infused rapid bolus. ERP made aware.
--- NOTE | 2022-10-24 19:12 | ED.GENADULT ---
HPI - General Adult General Chief complaint: Unspecified Stated complaint: tonsil bleed Time Seen by Provider: 10/24/22 19:05 History of Present Illness HPI narrative: Patient is a 32 year old female with history of depression, anxiety here with post tonsillectomy bleed. Patient had a tonsillectomy on 10/[address] Draper. She began bleeding earlier today. She went to see Dr. Draper in the clinic where he did silver nitrite cautery. Patient rebled and was instructed to come into the ED, Dr. Draper already aware of patient and to meet her en route. She notes multiple episodes of vomiting blood in her car on the way here. She has been diaphoretic and light headed since these episodes of vomiting. No blood thinner use. Related Data Home Medications Medication Instructions Recorded Confirmed escitalopram oxalate 20 mg tablet 20 mg PO DAILY 09/07/22 10/22/22 (Lexapro) gabapentin 800 mg tablet 800 mg PO TID PRN Pain 09/07/22 10/22/22 albuterol sulfate 90 mcg/actuation 2 puff inhalation PRN PRN 10/18/22 10/22/22 aerosol inhaler Shortness Of Breath tretinoin 0.025 % topical cream 1 applic topical QHS ACNE 10/18/22 10/18/22 Allergies Allergy/AdvReac Type Severity Reaction Status Date / Time gadobenic acid Allergy Intermediate Hives Verified 10/24/22 19:21 [From contrast - MRI] bupivacaine [From Marcaine] Allergy Mild Hives Verified 10/24/22 19:21 Review of Systems Review of Systems: CONSTITUTIONAL: Diaphoretic, Denies fever, chills ENT: Sore throat, blood from tonsil. Denies rhinorrhea, congestion CARDIOVASCULAR: Light headedness. Denies chest pain RESPIRATORY: Denies cough GASTROINTESTINAL: Vomiting, Denies abdominal pain, nausea. [facility] Past Medical History Medical History Anxiety Asthma Degenerative lumbar disc Depression Fracture of distal end of left fibula GERD (gastroesophageal reflux disease) Obstructive sleep apnea Surgical History Surgical History History of laparoscopic cholecystectomy 09/14/2022 - Robotic assisted laparoscopic cholecystectomy Family History Family History Father Colorectal cancer Diabetes mellitus Hypertension Mother Rheumatoid arthritis Factor 5 Leiden mutation, heterozygous Sibling Depression Anxiety Hypothyroidism Social History Social History Smoking status: Never smoker Alcohol intake: current Alcohol use details: socially Substance use: never Living arrangements: alone Occupation/Education: occupation Additional occupation/education comments: [facility] [employer] [facility] care concerns: No Agree to blood products: Yes Exam Narrative: GENERAL: Well-appearing, well-nourished, and in no acute distress. HEAD: Normocephalic, atraumatic. EYES: PERRLA and EOMI. ENT: Mucous membranes moist. Clot present over left posterior pharynx, unable to visualize the site of active bleeding. NECK: Supple. CHEST: Unlabored respirations HEART: Regular rate and rhythm. Normal peripheral pulses. ABDOMEN: Soft, nontender, nondistended. EXTREMITIES: Normal range of motion. No edema. SKIN: Pale NEURO: No focal deficits. Alert and oriented x3. PSYCH: Normal mood and affect. Course Course Emergency Course: Patient seen evaluated on arrival. large amount of blood on the floor of the room with patient spitting blood into the sink. She is diaphoretic and pale. Concern for post tonsillectomy bleed. Met in the room by Dr. Draper, her ENT physician. IV, basic labs ordered. Zofran offered however not currently nauseous. On Dr. Draper's evaluation, patient has continued bleeding from site on left, plans to take to OR. Lab work reviewed, Hgb stable. Patient continues to protect her airway an reevlauation. Patient taken to ope
[2022-10-24 19:22] LABS: Basophils Absolute Auto 0.1 K/mm3 (0.0-0.1); Basophils Percent Auto 0.3 % (0.2-1.2); Hematocrit 35.4 % (37.0-47.0); Hemoglobin 11.2 g/dL (12.0-15.0); Immature Granulocyte Absolute 0.07 K/mm3 (0.00-0.031); Immature Granulocyte Percent A 0.4 % (0-0.5); Lymphocytes Absolute Auto 1.87 K/mm3 (0.9-3.2); Lymphocytes Percent Auto 9.4 % (18.3-44.2); Mean Corpuscular HGB Conc 31.6 g/dl (32-36); Mean Corpuscular Volume 85.3 fl (80-100); Mean Platelet Volume 9.9 fl (7.4-10.4); Monocytes Absolute Auto 0.9 K/mm3 (0.1-0.6); Monocytes Percent Auto 4.4 % (2.6-8.5); Neutrophils Percent Auto 85.5 % (45.5-73.1); Platelet Count Result 369 k/mm3 (150-375); Red Blood Count 4.15 M/mm3 (4.2-5.4); Red Cell Distribution Width 13.2 % (11.5-14.5); White Blood Count 19.9 K/mm3 (4.5-10.0)
--- NOTE | 2022-10-24 19:22 | WPDANESEPP ---
Anes - Eval Pre Procedure Procedure: cauterization of post op tonsillar bleed Date/Time: 10/24/22 19:22 Surgeon: nicanor Preop Diagnosis: post operative tonsillar bleed Pre Op Diagnosis: tonsil bleed Patient Data Age: 32 Gender: F Height: 1.7 m Weight: 122 kg Last Vital Signs Temp 36.6 C 10/24/22 19:07 Pulse 84 10/24/22 19:22 Resp 14 10/24/22 19:22 BP 93/65 L 10/24/22 19:22 Pulse Ox 97 10/24/22 19:22 Allergies Allergy/AdvReac Type Severity Reaction Status Date / Time gadobenic acid Allergy Intermediate Hives Verified 10/24/22 19:21 [From contrast - MRI] bupivacaine [From Marcaine] Allergy Mild Hives Verified 10/24/22 19:21 Home Medications Medication Instructions Recorded Confirmed Type bupropion HCl 300 mg 24 hr tablet, 300 mg PO QAM #90 tabs 03/13/22 10/22/22 Rx extended release omeprazole 40 mg capsule,delayed 40 mg PO DAILY #90 caps 03/13/22 10/22/22 Rx release rizatriptan 10 mg disintegrating 10 mg PO ONCE PRN migraine 03/13/22 10/18/22 Rx tablet (Maxalt-MARKETING OUTREACH COORDINATOR) headache #27 tabs ergocalciferol (vitamin D2) 1,250 1,250 mcg PO WEEKLY #4 caps 08/26/22 10/22/22 Rx mcg (50,000 unit) capsule escitalopram oxalate 20 mg tablet 20 mg PO DAILY 09/07/22 10/22/22 History (Lexapro) gabapentin 800 mg tablet 800 mg PO TID PRN Pain 09/07/22 10/22/22 History albuterol sulfate 90 mcg/actuation 2 puff inhalation PRN PRN 10/18/22 10/22/22 History aerosol inhaler Shortness Of Breath tretinoin 0.025 % topical cream 1 applic topical QHS ACNE 10/18/22 10/18/22 History Adderall XR 30 mg capsule,extended 30 mg PO DAILY 1 month #30 caps 10/19/22 Rx release (dextroamphetamine-amphetamine) dextroamphetamine-amphetamine 10 10 mg PO BID 1 month #60 tabs 10/20/22 Rx mg tablet (Adderall) oxycodone 5 mg tablet 5 mg PO Q8H PRN pain #30 tabs 10/22/22 Rx Laboratory Tests 10/24/22 19:15 WBC Pending RBC Pending Hgb Pending Hct Pending MCV Pending MCH Pending MCHC Pending RDW Pending Plt Count Pending MPV Pending Immature Gran % (Auto) Pending Neut % (Auto) Pending Lymph % (Auto) Pending [place] % (Auto) Pending Eos % (Auto) Pending Baso % (Auto) Pending Lymph # (Auto) Pending [place] # (Auto) Pending Eos # (Auto) Pending Baso # (Auto) Pending Abs Immat Gran (auto) Pending Absolute Neuts (auto) Pending Absolute Nucleated RBC Pending Nucleated RBC % Pending PT Pending INR Pending APTT Pending Sodium Pending Potassium Pending Chloride Pending Carbon Dioxide Pending Anion Gap Pending BUN Pending Creatinine Pending Estim Creat Clear Calc Pending Estimated GFR Pending Glucose Pending Calcium Pending Total Bilirubin Pending AST Pending ALT Pending Alkaline Phosphatase Pending Total Protein Pending Albumin Pending Patient hx anesthesia problems: none Family hx anesthesia problems: none Results Review: All pre-operative results and documents have been reviewed as part of the pre-operative evaluation. [facility] Past Medical History Medical History Anxiety Asthma Degenerative lumbar disc Depression Fracture of distal end of left fibula GERD (gastroesophageal reflux disease) Obstructive sleep apnea Surgical History Surgical History History of laparoscopic cholecystectomy 09/14/2022 - Robotic assisted laparoscopic cholecystectomy Family History Family History Father Colorectal cancer Diabetes mellitus Hypertension Mother Rheumatoid arthritis Factor 5 Leiden mutation, heterozygous Sibling Depression Anxiety Hypothyroidis
[2022-10-24 19:36] LABS: Alanine Aminotransferase 24 U/L (6-35); Alkaline Phosphatase 59 U/L (38-126); Anion Gap 10 mmol/L (8-16); Aspartate Amino Transferase 42 U/L (14-36); Bilirubin,Total 0.3 mg/dL (0.2-1.3); Blood Urea Nitrogen 12 mg/dL (7-17); Carbon Dioxide 25 mmol/L (22-30); Chloride 100 mmol/L (98-107); Estimated CRCL calculation 133 ml/min; Estimated Glomerular Filt Rate > 60; Glucose 160 mg/dL (65-110); Potassium 4.5 mmol/L (3.4-5.0); Sodium 135 mmol/L (137-145)
--- NOTE | 2022-10-24 19:37 | PM.IMHP ---
H&P: HPI History of Present Illness Date/Time: 10/24/22 19:37 Chief Complaint: Post operative tonsil hemorrhage Narrative: Urgent/emergent procedure bleed appears to be left inferior Review of Systems Review of Systems: All systems reviewed & are unremarkable except as noted in HPI and below PMFSH Past Medical History Medical History Anxiety Asthma Degenerative lumbar disc Depression Fracture of distal end of left fibula GERD (gastroesophageal reflux disease) Obstructive sleep apnea Surgical History Surgical History History of laparoscopic cholecystectomy 09/14/2022 - Robotic assisted laparoscopic cholecystectomy Family History Family History Father Colorectal cancer Diabetes mellitus Hypertension Mother Rheumatoid arthritis Factor 5 Leiden mutation, heterozygous Sibling Depression Anxiety Hypothyroidism Social History Social History Smoking status: Never smoker Alcohol intake: current Alcohol use details: socially Substance use: never Living arrangements: alone Occupation/Education: occupation 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 care concerns: No Agree to blood products: Yes Meds Home Medications and Allergies Home Medications Medication Instructions Recorded Confirmed Type bupropion HCl 300 mg 24 hr tablet, 300 mg PO QAM #90 tabs 03/13/22 10/22/22 Rx extended release omeprazole 40 mg capsule,delayed 40 mg PO DAILY #90 caps 03/13/22 10/22/22 Rx release rizatriptan 10 mg disintegrating 10 mg PO ONCE PRN migraine 03/13/22 10/18/22 Rx tablet (Maxalt-ADULT NEUROPSYCHOLOGIST) headache #27 tabs ergocalciferol (vitamin D2) 1,250 1,250 mcg PO WEEKLY #4 caps 08/26/22 10/22/22 Rx mcg (50,000 unit) capsule escitalopram oxalate 20 mg tablet 20 mg PO DAILY 09/07/22 10/22/22 History (Lexapro) gabapentin 800 mg tablet 800 mg PO TID PRN Pain 09/07/22 10/22/22 History albuterol sulfate 90 mcg/actuation 2 puff inhalation PRN PRN 10/18/22 10/22/22 History aerosol inhaler Shortness Of Breath tretinoin 0.025 % topical cream 1 applic topical QHS ACNE 10/18/22 10/18/22 History Adderall XR 30 mg capsule,extended 30 mg PO DAILY 1 month #30 caps 10/19/22 Rx release (dextroamphetamine-amphetamine) dextroamphetamine-amphetamine 10 10 mg PO BID 1 month #60 tabs 10/20/22 Rx mg tablet (Adderall) oxycodone 5 mg tablet 5 mg PO Q8H PRN pain #30 tabs 10/22/22 Rx Allergies Allergy/AdvReac Type Severity Reaction Status Date / Time gadobenic acid Allergy Intermediate Hives Verified 10/24/22 19:21 [From contrast - MRI] bupivacaine [From Marcaine] Allergy Mild Hives Verified 10/24/22 19:21 Vital Signs Vital Signs - 24 hr 10/24/22 19:07 10/24/22 19:20 10/24/22 19:22 Temperature 36.6 C Pulse Rate 78 84 Respiratory Rate 14 Blood Pressure 93/65 L Pulse Oximetry 97 10/24/22 19:23 Temperature Pulse Rate Respiratory Rate 14 Blood Pressure Pulse Oximetry Exam Narrative: Left inferior bleeding after clot was suctioned out it appears to be from inferior based lateral aspect H&P: Results Labs Labs: Short CBC 10/24/22 Range/Units 19:15 WBC 19.9 H (4.5-10.0) K/mm3 Hgb 11.2 L (12.0-15.0) g/dL Hct 35.4 L (37.0-47.0) % Plt Count 369 (150-375) k/mm3 BMP 10/24/22 19:15 Sodium 135 L Potassium 4.5 Chloride 100 Carbon Dioxide 25 BUN 12 Creatinine 0.70 Glucose 160 H Calcium 9.0 Liver Function 10/24/22 Range/Units 19:15 Total Bilirubin 0.3 (0.2-1.3) mg/dL AST 42 H (14-36) U/L ALT 24 (6-35) U/L Alkaline Phosphatase 59 (38-126) U/L Albumin 4.0 (3.5-5.1) g/dL Assessment and Plan Assessment and plan (1) Post-tonsill
--- NOTE | 2022-10-24 19:40 | WPDHPUPDATE1 ---
History and Physical Update Update Date/Time: 10/24/22 19:40 History and Physical has been reviewed, including an updated exam of the patient. There are NO changes in the patient's condition. Risks, benefits, and alternatives have been discussed and questions answered. Patient agrees to proceed with procedure.
[2022-10-24 19:48] LABS: Prothrombin Time 13.7 Seconds (11.1-14.7)
[2022-10-24 19:49] LABS: Partial Thromboplastin Time 24.3 SECONDS (22.3-36.8)
[2022-10-24] MEDS: LACTATED RINGERS 1,000 ML 30 ML IV CONT (20:00)
--- NOTE | 2022-10-24 20:31 | P.PNAN_ITS ---
Anes - Eval Final PreProcedure Day of Procedure 10/24/22 20:31 Patient weight: morbidly obese Heart: regular rate and rhythm Lungs: clear to auscultation Airway: Mallampati scale class II Neurological: alert and oriented Last oral intake: >/= 8 hours ASA classification: III Emergent: yes Anesthetic plan: proceed Anesthesia type and monitoring: general ETT and standard monitoring Results Review: All pre-operative results and documents have been reviewed as part of the pre- operative evaluation. Informed Consent: The patient's anesthetic plan and its attendant risks and benefits were discussed with the patient/family/POA. Questions were solicited and answers provided to the satisfaction of the patient/family/POA.
--- NOTE | 2022-10-24 20:49 | W.PM.PROC2 ---
Procedure Note - Detailed Date of Procedure 10/24/22 Pre-op Diagnosis Post tonsillectomy hemorrhage Post-op Diagnosis Same Procedure Performed Control of hemorrhage Surgeon David Draper MD Anesthesia General Indications See above Findings Bleeding left inferior pole vessel Description of Procedure Patient identified consent verified preop. Patient brought operating. Time-out performed. General anesthesia induced endotracheal tube secured. Patient prepped reposition procedure confirm 2nd time-out performed. McIvor mouth gag inserted to reveal a clot on the left inferior pole. This was suctioned off and brisk bleeding ensued from a vein. This was cauterized with Bovie suction electrocautery setting of 15. The McIvor mouth gag was then lowered for 30 seconds reopened reveal no further bleeding. The area was then rubbed aggressively with a tonsil ball. No bleeding ensued and the scab remained in place. Patient tolerated procedure very well. Total blood loss 2 cc. I performed all dictated portions of procedure. No complications. McIvor mouth gag removed. Estimated Blood Loss 2 Drains No Packing No Pathology None sent Complications No immediate complications Condition Stable Disposition PACU [facility] Billing Surgery - Charge Forward: Surgery Billing
[2022-10-24] MEDS: fentaNYL CITRATE INJ (*CRX) 100 MCG/2 ML VIAL 25 MCG IV PUSH ×4 (21:00→21:15)
[2022-10-24] MEDS: ONDANSETRON INJ 4 MG/2 ML VIAL IV PUSH (21:19)
[2022-10-24] MEDS: oxyCODONE (*CRX) 5 MG/5 ML ORAL SOLN IR PO (22:00)
== END 2022-10-24 22:20 | disposition home or self-care (01) ==
LOC: ANHED 19:14 → ANHSURGERY 19:17
PROVIDERS: Emergency Provider Student in an Organized Health Care Education/Training Program; PCP Family Medicine; Visit Provider Otolaryngology
PROC: (CPT 42960; principal; 2022-10-24 20:30)
DX: J95.830 Postprocedural hemorrhage of a respiratory system organ or structure following a respiratory system procedure (principal); Y83.8 Other surgical procedures as the cause of abnormal reaction of the patient, or of later complication, without mention of misadventure at the time of the procedure; Z79.51 Long term (current) use of inhaled steroids; J45.909 Unspecified asthma, uncomplicated; F32.A Depression, unspecified; F41.9 Anxiety disorder, unspecified; G47.33 Obstructive sleep apnea (adult) (pediatric)
CPT/HCPCS: 42960; 36415; 80053; 85025; 85610; 85730; 86850; 86900; 86901; 99285; A9270; J2250; J2405; J3010; J7030; J7120

== ENCOUNTER 2023-12-14 14:45 | Outpatient (CLI) | payer OTHER, SELFPAY ==
[2023-12-14 16:20] LABS: Toxigenic C. Diff NEGATIVE (NEGATIVE)
== END 2023-12-14 14:46 | disposition home or self-care (01) ==
PROVIDERS: PCP Family Medicine; Visit Provider Family Medicine
DX: R19.7 Diarrhea, unspecified (principal)
CPT/HCPCS: 87045; 87427; 87449; 87493